=== PATIENT | male | born 1955 | race Caucasian/White ===

== ENCOUNTER 2024-02-04 11:25 | Day surgery (SDC) | payer MEDICARE, SELFPAY ==
[2024-01-31 14:22] VITALS: BMI 31.1
[2024-02-04 11:32] VITALS: BMI 31.0
[2024-02-04 11:38] VITALS: BP 145/90; PULSE 85; RESP 16; TEMP 36.8; O2SAT 96
[2024-02-04] MEDS: Lactated Ringers 1,000 ML 50 ML IVCONT (11:52)
--- NOTE | 2024-02-04 11:54 | P.CONAN_ITS ---
[facility] Past Medical History Medical History Umbilical hernia Hyperlipidemia HTN (hypertension) Family History Family history of problems with anesthesia: No Surgical History Surgical History Hx of tonsillectomy History of esophagogastroduodenoscopy (EGD) H/O colonoscopy History of Problems with Anesthesia: No Social History Social History Patient Tobacco Use Status: Former Tobacco user Quit Date: teens Use of substances other than those prescribed or required for medical reasons: No Are you DNR?: No Advance Directives: No Advance Directives Information Provided: Yes Meds Allergies Allergy/AdvReac Type Severity Reaction Status Date / Time No Known Allergies Allergy Verified 02/04/24 11:32 Active Medications: Current Medications Lactated Ringer's (Lr) 1,000 mls @ 50 mls/hr IVCONT .Q20H JACKLYN Last Admin: 02/04/24 11:52 Dose: 50 mls/hr Sodium Biphosphate/Sodium Phosphate (Sodium Phosphate,[place]-Dibasic 133 Ml Enema) 133 ml ND ONCE PRN PRN Reason: Poor Colonoscopy Prep Results Home Medications Medication Instructions Recorded Confirmed Last Taken Type amlodipine 5 mg tablet 5 mg PO DAILY 01/31/24 01/31/24 02/04/24 06:00 History ascorbic acid (vitamin C) 1,000 mg 1 g PO DAILY 01/31/24 01/31/24 Unknown History tablet (Vitamin C) atorvastatin 20 mg tablet 20 mg PO DAILY 01/31/24 01/31/24 02/04/24 06:00 History losartan 50 mg tablet 50 mg PO DAILY 01/31/24 01/31/24 02/04/24 06:00 History omega 7-nas-ouc-fish oil 910 2 cap PO DAILY 01/31/24 01/31/24 01/30/24 History mg-1,400 mg capsule (Vanduser-3 Fish Oil) Exam Height,Weight and Vital Signs: Height 5 ft 11 in Weight 100.788 kg Last Vital Signs Temp 98.2 F 02/04/24 11:38 Pulse 85 02/04/24 11:38 Resp 16 02/04/24 11:38 BP 145/90 H 02/04/24 11:38 Pulse Ox 96 02/04/24 11:38 O2 Del Method Room Air 02/04/24 11:38 Airway Mallampati Class: II TM Dist: >3cm Neck ROM: Full Denture: Upper and Lower Heart: rrr Lungs: cta Assessment and Plan Assessment Anesthesia Assessment: Anesthesia Plan Discussed and Chart Reviewed Final Anesthetic Review Family History of Problems with Anesthesia: No History of Problems with Anesthesia: No NPO: Yes ASA Class: II Final Preanesthetic Review: No Changes in Pt Med Stat, Meds/Allgs Chart Reviewed and Consent Obtained/Reviewed Patient Risk: Low Procedure Risk: Low Anesthetic Plan Anesthetic Plan: MAC: Disposition: Standard PACU
--- NOTE | 2024-02-04 12:41 | PM.OP ---
Brief Operative Note Date of Service: 02/04/24 Pre-op diagnosis: Screening Post-op diagnosis: other (Polyps) Procedure: Colonoscopy to the cecum and TI with bx/removal of polyps Surgeon: Jordon Gómez MD Anesthesia: MAC Was an Collar Stay Fuser Tender used for this Procedure?: No Estimated blood loss (mL): 2.0 Pathology: other (A. Transverse colon polyps) Condition: stable Disposition: PACU
[2024-02-04 12:44] VITALS: BP 115/70; PULSE 98; RESP 18; TEMP 36.4; O2SAT 98
[2024-02-04 12:59] VITALS: BP 132/92; PULSE 89; RESP 16; TEMP 36.4; O2SAT 95
--- NOTE | 2024-02-04 16:48 | OP_ITS ---
DATE OF SERVICE: 02/04/2024 SURGEON: Jordon Gómez MD INDICATIONS: The patient presents for evaluation of colorectal cancer screening. Full consent has been obtained from him for this, including risks of bleeding and perforation. PREOPERATIVE DIAGNOSIS: Colorectal cancer screening. POSTOPERATIVE DIAGNOSIS: PROCEDURE PERFORMED: Colonoscopy to the cecum and terminal ileum with biopsy and removal of polyps. ESTIMATED BLOOD LOSS: COMPLICATIONS: ANESTHESIA: Monitored anesthesia care. ASSISTANTS: SPECIMENS: POSTOPERATIVE DIAGNOSES: Colorectal cancer screening, small colon polyps, diverticulosis, and internal hemorrhoids. DESCRIPTION OF PROCEDURE: The patient was placed in the left lateral decubitus position. The digital rectal exam revealed no abnormalities. The Olympus video pediatric colonoscope was entered into the rectum and advanced easily to the cecum. Once in the cecum, I did identify normal-appearing cecal pouch with appendiceal orifice and a normal-appearing ileocecal valve. The terminal ileum was cannulated and appeared normal. The scope was withdrawn back in the colon. The entire cecum and ileocecal valve appeared normal. Scope was slowly withdrawn assessing all mucosal surfaces carefully. Preparation was excellent. In the transverse colon were 2 flat less than 5 mm polyps, which were each biopsied and completely removed with a cold biopsy forceps. I did not visualize any other polyps, colitis, nor angiodysplasia. There was a mild amount of sigmoid diverticulosis. In the rectum, scope was retroflexed visualizing internal hemorrhoids, but no other pathology. The rectal mucosa appeared normal. The scope was straightened and withdrawn from the patient. He tolerated the procedure well and was returned to the recovery area in stable condition. IMPRESSION: 1. Small colon polyps. 2. Diverticulosis. 3. Internal hemorrhoids. PLAN: The results of the biopsy will be checked. If these are tubular adenomas, I would recommend a followup coloscopy in 5 years. If they are only hyperplastic, I would recommend a followup closely in 10 years for further screening. He will otherwise see me on a p.r.n. basis. MD CECELIA Wagoner/BYRON / [id number]
== END 2024-02-04 13:50 | disposition home or self-care (01) ==
PROVIDERS: PCP Internal Medicine; Visit Provider Internal Medicine
PROC: 0DJD8ZZ Inspection of Lower Intestinal Tract, Via Natural or Artificial Opening Endoscopic (ICD-10-PCS; CPT 45378; principal; 2024-02-04 12:20)
DX: Z12.11 Encounter for screening for malignant neoplasm of colon (principal); D12.3 Benign neoplasm of transverse colon; K57.30 Diverticulosis of large intestine without perforation or abscess without bleeding; K64.8 Other hemorrhoids; K42.9 Umbilical hernia without obstruction or gangrene; I10 Essential (primary) hypertension; E78.5 Hyperlipidemia, unspecified; Z79.899 Other long term (current) drug therapy
CPT/HCPCS: 45380; 88305; J2704